=== PATIENT | female | born 1980 | race Caucasian/White ===

== ENCOUNTER 2023-06-05 15:20 | Observation (INO) | payer BC, MEDICAID, SELFPAY ==
[2023-06-05 15:24] VITALS: BP 101/52; PULSE 121; RESP 24; TEMP 36.2; O2SAT 93; BMI 34.2
--- NOTE | 2023-06-05 15:50 | CT_ITS ---
STUDY: CT BRAIN WITHOUT CONTRAST REASON FOR EXAM: Female, 42 years old. mental status change RADIATION DOSAGE (If Supplied By Facility): CTDIvol = ( 44.99 ) mGy, DLP = ( 829.85 ) mGycm TECHNIQUE: Transaxial CT imaging of the brain was performed without administration of intravenous contrast material. Individualized dose optimization techniques were used for this CT. COMPARISON: No relevant priors. FINDINGS: Normal soft tissue structures. Normal calvarium. Normal size ventricles and extra-axial spaces for the patient''s age. Normal white matter tracts of the cerebral hemispheres. Normal basal ganglia and thalami. Normal brainstem. Normal cerebellum. There is no intracranial hemorrhage. There are no findings of an acute ischemic infarction. Normal visualized paranasal sinuses. CT/Brain/Head without Contrast IMPRESSION: Normal unenhanced CT scan of the brain. Electronically Signed: Lauren Shi MD at 17:36 EDT Reading Location ID and State: [id number] / Tel , Service support ,
--- NOTE | 2023-06-05 15:52 | EDS_ITS ---
HPI History of Present Illness Chief Complaint: Seizure Narrative Narrative: 42-year-old female past medical history of bipolar disorder, presents via EMS. She admits to drinking alcohol today and taking a hit off of her sisters marijuana pipe. She presents because of mental status change that has resolved. Her states that they were at a pool green party. She had been drinking alcohol. She had spilled her vape substance all over her legs previously which is absorbed through the skin reportedly. She leaned over, but did not come back up. Her went over to her, and tried to awaken her, but she felt rigid and stiff. He states that she evacuated her bowels and when he went to pick her up, he was trying to awaken her for at least a minute or 2. When she awoke, she states I am fine, and there was no postictal period. She states that she felt as if she was going to pass out previously and that she felt lightheaded prior to these events happening. They called EMS and she was brought here for evaluation. PFSH PFSH Medical History Anxiety and depression Bipolar 1 disorder Cannabis use disorder Diabetes mellitus, type 2 HTN (hypertension) Hyperlipidemia Obesity Restless leg syndrome Tardive dyskinesia Vaping nicotine dependence, tobacco product Home Medications atorvastatin 40 mg tablet mg 06/05/23 [History Last Taken Unknown] cariprazine 1.5 mg capsule (Vraylar) 1.5 mg PO DAILY 06/05/23 [History Last Taken Unknown] lisinopril 5 mg tablet mg 06/05/23 [History Last Taken Unknown] lorazepam 0.5 mg tablet mg 06/05/23 [History Last Taken Unknown] metformin 1,000 mg tablet mg 06/05/23 [History Last Taken Unknown] ropinirole 1 mg tablet mg 06/05/23 [History Last Taken Unknown] venlafaxine 75 mg capsule,extended release 24 hr mg PO 06/05/23 [History Last Taken Unknown] Allergy/AdvReac Type Severity Reaction Status Date / Time No Known Allergies Allergy Verified 06/05/23 15:26 Surgical History (Updated 06/05/23 @ 19:[address] Patricia Trinidad MD) H/O lumbar discectomy History of Social History (Updated 06/05/23 @ 19:[address] Patricia Trinidad MD) household members: spouse Smoking Status: Current every day smoker tobacco type: e-cigarettes alcohol intake: current substance use type: marijuana ROS ROS ED ROS Narrative Constitutional: No fever, no chills. HEENT: No sore throat. No neck pain. No loss of vision. No rhinorrhea. Cardiovascular: No chest pain. No palpitations. No pedal edema. Questionable syncopal episode. Respiratory: No cough, no shortness of breath. Abdominal: No abdominal pain. No nausea. No vomiting. Genitourinary: No dysuria. No hematuria. Musculoskeletal: No myalgias. No arthralgias. Neurologic: No headaches. No dizziness. Positive lightheadedness. Positive mental status change-resolved Skin: No rash. No change in color. Psychiatric: No depression. No anxiety. EXAM Physical Exam Narrative Exam Narrative: Afebrile. Vital signs noted. HEENT: Normocephalic. Atraumatic. PERRL, EOMI. Neck soft and supple. No point tenderness or step off. Cardiovascular: Positive tachycardia, no murmurs, rubs, or gallops appreciated. Respiratory: No tachypnea. Lungs clear to auscultation bilaterally. Gastrointestinal: Abdomen soft, nontender, with normoactive bowel sounds. No rebound or guarding. Neurological: Awake. Alert. Oriented to person, place, and time. Nonfocal, nonlateralizing. Skin: No rash. Normal color. No pallor. Musculoskeletal: No pedal edema. Full range of motion extremities. Const Vital Signs: 06/05/23 15:24 06/05/23 18:49 06/05/23 19:15 Temperature 97.1 F L 98.0 F Temperature Source Temporal Oral Pulse Rate 121 H 104 H 99 Respiratory Rate 24 H 20 H 16 Blood Pressure 101/52 L 156/118 H 121/81 H Blood Pressure Mean 68 130 94 Pulse Ox 93 94 94 Oxygen Delivery Method Room Air Room Air Room Air MDM MDM MDM Narrative Medical decision making narrative: Suspicion is lower for seizure, although she lost control of her bowels, it may have been more of a syncopal episode. Additionally I do feel that there may be a confluence of circumstances including any alcohol intoxication accompanied by marijuana use, as the patient states that she does not regularly smoke marijuana. Comprehensive work-up was pursued. She will be bolused normal sa line 1 L intravenously. I reviewed her laboratory work, she has normal white count of 6.8, hemoglobin 13.7, hematocrit 40.8, platelet count normal at 178. Sodium is 139 and potassium slightly low at 3.3 which I think is nonspecific. She has a normal anion gap 15, glucose is elevated at 194, consistent with her diabetes, but she has a normal anion gap of 15 as just stated. I do not have large concern for diabetic ketoacidosis. LFTs are normal at 25 and 43. High-sensitivity troponin is less than 3. EKG was obtained and interpreted by myself independently as sinus tachycardia at 118 bpm. Her alcohol level is elevated at 137 consistent with acute intoxication. Urine for drugs of abuse is positive for cannabinoids. They stated that she had spilled her vaping juice on her, and may have had skin absorption, but this was more of a nicotine substance and other vaping chemicals. Her lactic acid is elevated at 4.9. Although she is tachycardic I have lower concern for sepsis. Initially had ordered antibiotics and blood cultures, but feel that the lactic acid may be elevated secondary to her actually having a seizure. I did add a prolactin which is normal at 15. However, this was later after her lactic acid was positive. With concern for new onset seizure with her reported loss of bowels and body stiffness, I consulted neurology. After evaluation, the teleneurologist is re commending observation for MRI, EEG, and other stroke work-up. They state that she does not need to be started on antiseizure medication for 1 suspected seizure. At this point in time, I will discuss patient with the hospitalist for observation. Patient was discussed with Dr. Patricia Trinidad. After a bolus of IV fluids she is less tachycardic at 104 bpm. Disposition is assigned to observation. Patient is in stable condition. Lab Data Labs: Laboratory Results - last 24 hr 06/05/23 06/05/23 16:00 16:20 WBC 6.8 RBC 4.75 Hgb 13.7 Hct 40.8 MCV 85.9 MCH 28.8 MCHC 33.6 RDW Std Deviation 41.6 RDW Coeff of Arti 13.3 Plt Count 178 MPV 12.9 H Immature Gran % (Auto) 0.400 Neut % (Auto) 60.8 Lymph % (Auto) 31.5 [place] % (Auto) 6.6 Eos % (Auto) 0.3 Baso % (Auto) 0.4 Absolute Neuts (auto) 4.2 Absolute Lymphs (auto) 2.15 Nucleated RBC % 0 Sodium 139 Potassium 3.3 L Chloride 105 Carbon Dioxide 19.0 L Anion Gap 15 BUN 13 Creatinine 0.83 Estim Creat Clear Calc 79.45 Est GFR (MDRD) Af Amer 97 Est GFR (MDRD) Non-Af 80 BUN/Creatinine Ratio 15.6 Glucose 194 H Lactic Acid 4.9 H* Calcium 8.7 Total Bilirubin 0.30 AST 25 ALT 43 Alkaline Phosphatase 79 Troponin I High Sens < 3 L Total Protein 6.8 Albumin 3.4 Globulin 3.4 Albumin/Globulin Ratio 1.0 Prolactin 15.5 Serum , Qual NEGATIVE Urine Opiates Screen NEGATIVE Urine Methadone Screen NEGATIVE Ur Barbiturates Screen NEGATIVE Ur Phencyclidine Scrn NEGATIVE Ur Amphetamines Screen NEGATIVE MDMA (Ecstasy) Screen NEGATIVE U Benzodiazepines Scrn NEGATIVE Urine Cocaine Screen NEGATIVE U Cannabinoids Screen POSITIVE H Ur Drug Screen Comment Ethyl Alcohol 137.0 Radiography Diagnostic Testing: Clinical Impression(s) from Imaging Studies Brain CT 06/05/23 15:50 IMPRESSION: Normal unenhanced CT scan of the brain. Electronically Signed: Lauren Shi MD at 17:36 EDT Reading Location ID and State: [id number] / Tel , Service support , Discharge Plan Dx/Rx/DC Orders Clinical Impression: Alcohol intoxication, Cannabis use disorder, mild, abuse, New onset seizure Disposition Disposition: Acute Care Hospital [facility]
[2023-06-05 16:24] LABS: Absolute Lymphocyte Count 2.15 X10^3/uL (0.83-4.51); Absolute Neutrophil Count 4.2 X10^3/uL (2.0-7.7); Basophil# 0.03 X10^3/uL; Basophil% 0.4 % (0-1); Eosinophil# 0.02 X10^3/uL; Eosinophils% 0.3 % (0-5); Hematocrit 40.8 % (37-47); Hemoglobin 13.7 g/dL (12.0-15.0); Lymphocyte # 2.15 X10^3/ul (0.83-4.51); Lymphocyte % 31.5 % (19-41); Mean Corp Hgb Conc 33.6 g/dL (32-36); Mean Corpuscular Hgb 28.8 pg (27.0-32.0); Mean Corpuscular Volume 85.9 fL (81-99); Mean Platelet Vol. 12.9 fl (6.2-12.0); Monocyte# 0.45 X10^3/uL; Monocyte% 6.6 % (0-10); NRBC Flagged by Analyzer 0 % (0-5); Neutrophil # 4.15 X10^3/uL (2.7-7.7); Neutrophil % 60.8 % (47-70); Platelet Count 178 K/mm3 (150-450); RBC Distribution Width CV 13.3 % (11.6-14.6); RBC Distribution Width SD 41.6 fl (35.1-43.9); Red Blood Count 4.75 M/mm3 (4.2-5.4); White Blood Count 6.8 K/mm3 (4.4-11.0)
[2023-06-05 16:36] LABS: Internal QC Validated? YES +Cl - CLEAR BKGD; Pregnancy, Serum, hCG Quali. NEGATIVE Negative
[2023-06-05 16:45] LABS: AST(SGOT) 25 U/L (15-37); Alanine Aminotransfer ALT/SGPT 43 U/L (13-56); Albumin, Serum 3.4 g/dL (3.2-5.0); Alkaline Phosphatase 79 U/L (45-117); Anion Gap 15 (5-15); BUN 13 mg/dL (7-18); BUN/Creat Ratio 15.6 RATIO (10-20); Calcium,Total 8.7 mg/dL (8.5-10.1); Chloride 105 mmol/L (98-107); Creatinine, Serum 0.83 mg/dL (0.55-1.02); EST Glomerular Filtration Rate 80 mL/min (>60); Est Glom Filt Rate - Afr Amer 97 mL/min (>60); Estimated Creatinine Clearance 79.45 ml/min; Globulin 3.4 g/dL (2.2-4.2); Glucose 194 mg/dL (74-106); Potassium 3.3 mmol/L (3.5-5.1); Protein, Total 6.8 g/dL (6.4-8.2); Sodium Level 139 mmol/L (136-145); Troponin-I HS < 3 pg/mL (3.0-54.0)
[2023-06-05 16:52] LABS: Lactic Acid 4.9 mmol/L (0.4-1.9)
[2023-06-05 17:05] LABS: Vista UDS pH Range 5
[2023-06-05 17:10] LABS: Amphetamine Urine VISTA NEGATIVE (<1000 ng/mL); Barbiturate Urine VISTA NEGATIVE (< 200 ng/mL); Benzodiazepine Urine VISTA NEGATIVE (< 200 ng/mL); Cocaine Urine VISTA NEGATIVE (< 300 ng/mL); Ecstacy Urine VISTA NEGATIVE (< 500 ng/mL); Methadone Urine VISTA NEGATIVE (< 300 ng/mL); PCP Urine VISTA NEGATIVE (< 25 ng/mL); THC Urine VISTA POSITIVE (< 50 ng/mL)
[2023-06-05 17:36] LABS: Prolactin 15.5 ng/mL
[2023-06-05 18:49] VITALS: BP 156/118; PULSE 104; RESP 20; TEMP 36.7; O2SAT 94
[2023-06-05 19:11] VITALS: BP 118/80; PULSE 88; RESP 16; TEMP 36.6; O2SAT 95
[2023-06-05 19:15] VITALS: BP 121/81; PULSE 99; RESP 16; O2SAT 94
--- NOTE | 2023-06-05 19:18 | HP.PCM.HOS_ITS ---
HPI - General General Date of Admission: 06/05/23 Date of Service: 06/05/23 Chief Complaint: Possible seizure, new onset. HPI Narrative The patient is a 42 y/o F w/ PMHx: Obesity, Anxiety and Depression/Bipolar disorder with associated tardive dyskinesia, Hypertension, Hyperlipidemia, Diabetes mellitus type II, RLS, Cannbis Use, Tobacco use who presents to the [facility] ED on 06/05/23 with history of apparently being her baseline normal on day of presentation with reported alcohol intake and apparently taking a hit off her sister's marijuana pipe with onset of significant mental status change reportedly at a alliance party specifically a pool alliance party and apparently also spilled all of her vape substance all over her legs with concern for skin absorption and when this occurred she slumped over and when her went over to her and tried to awaken her she felt rigid and stiff with loss of bowels eventually waking up approximately 2 minutes since onset and initially stated to ED physicians that she was returned to her complete baseline however to the telemetry neurology she noted that she was potentially confused for about 5 minutes following and then returned to her baseline had complete return to her baseline with report that prior to this event she felt lightheaded and dizzy as if she was going to pass out with EMS call and eventual ED evaluation. Per spouse patient also did not convulse but became only rigid. Work-up in the ED in cluded T97.1, heart rate 121, BP 101/52, respiratory rate 24, 93% oxygenation with most recent vitals T98, heart rate 104, BP 156/119, respiratory rate 20, 94% oxygenation, CBC with WC 6.8, hemoglobin 13.7, platelet 178 without marked shift, CMP with potassium 3.3, carbon oxide 19, glucose 194, lactic acid 4.9, hepatic profile unremarkable, prolactin 15.5, troponin less than 3, serum negative, UDS with positive cannabis, ethyl alcohol 137, CT the brain with no acute intracranial finding, EKG ST with no acute evidence of ischemia. Telemetry neurology consultation with recommendation for MRI of the brain with and without contrast, EEG, no pursued restrictions unless she has a recurrent seizure and strong recommendation to avoid vaping marijuana as well as nicotine cessation. Initially in the ED upon presentation there was concern she may have sepsis for sepsis protocol was initially started with IV vancomycin and Zosyn. COUNT INCLUDES THE [facility] Medical History Anxiety and depression Bipolar 1 disorder Cannabis use disorder Diabetes mellitus, type 2 HTN (hypertension) Hyperlipidemia Obesity Restless leg syndrome Tardive dyskinesia Vaping nicotine dependence, tobacco product Home Medications atorvastatin 40 mg tablet 40 mg PO QHS high cholesterol 06/05/23 [History Last Taken 06/04/23] cariprazine 1.5 mg capsule (Vraylar) 1.5 mg PO DAILY 06/05/23 [History Last Taken Unknown] lisinopril 5 mg tablet 5 mg PO DAILY 06/05/23 [History Last Taken Unknown] lorazepam 0.5 mg tablet 0.5 mg PO DAILY 06/05/23 [History Last Taken 06/05/23] metformin 1,000 mg tablet 1,000 mg PO BID diabetes 06/05/23 [History Last Taken 06/05/23] ropinirole 1 mg tablet mg not taking any more 06/05/23 [History Last Taken Un known] valbenazine 40 mg capsule (Ingrezza) 40 mg PO QHS for jaw 06/05/23 [History Last Taken 06/04/23] venlafaxine 75 mg capsule,extended release 24 hr 75 mg PO DAILY anxiety 06/05/23 [History Last Taken 06/05/23] Allergy/AdvReac Type Severity Reaction Status Date / Time No Known Allergies Allergy Verified 06/05/23 15:26 Family History (Updated 06/05/23 @ 19:[address] Patricia Trinidad MD) Father HLD (hyperlipidemia) Mother HLD (hyperlipidemia) Hypertension Heart disease COPD (chronic obstructive pulmonary disease) CHF (congestive heart failure) Diabetes Surgical History (Updated 06/05/23 @ 19:[address] Patricia Trinidad MD) H/O lumbar discectomy History of Social History (Updated 06/05/23 @ 19:[address] Patricia Trinidad MD) household members: spouse Smoking Status: Current every day smoker tobacco type: cigarettes and e- cigarettes Electronic Cigarette Use: with nicotine alcohol intake: current alcohol intake frequency: a few times a month substance use type: other details: Denies routine use of cannabis products. ROS ROS Narrative Admission Review of Systems: CONSTITUTIONAL: No weight loss, fever, chills, + weakness or fatigue. HEENT: Eyes: No visual loss, blurred vision, double vision or yellow sclerae. Ears, Nose, Throat: No hearing loss, sneezing, congestion, runny nose or sore throat. SKIN: No rash or itching, lesions, wounds. CARDIOVASCULAR: No chest pain, chest pressure or chest discomfort, palpitations, edema, orthopnea, syncopal events. RESPIRATORY: No shortness of breath, cough or sputum, wheezing, hemoptysis. GASTROINTESTINAL: + Incontinent of stool, No anorexia, nausea, vomiting or diarrhea, abdominal pain, melena, BRBPR. GENITOURINARY: No dysuria, frequency, urgency or retention. NEUROLOGICAL: + Unresponsive episode with body rigidity, incontient of stool, ? Seizure. No headache, dizziness, syncope, paralysis, ataxia, numbness or tingling in the extremities, focal weakness. MUSCULOSKELETAL: No muscle, back pain, joint pain or stiffness. HEMATOLOGIC: No anemia, bleeding or bruising. LYMPHATICS: No enlarged nodes. No history of splenectomy. PSYCHIATRIC: + history of depression or anxiety. ENDOCRINOLOGIC: No reports of sweating, cold or heat intolerance. No polyuria or polydipsia. ALLERGIES: No history of asthma, hives, eczema or rhinitis. Vital Signs Vital Signs Vital Signs: 06/05/23 15:24 06/05/23 18:49 06/05/23 19:15 Temperature 97.1 F L 98.0 F Temperature Source Temporal Oral Pulse Rate 121 H 104 H 99 Respiratory Rate 24 H 20 H 16 Blood Pressure 101/52 L 156/118 H 121/81 H Blood Pressure Mean 68 130 94 Pulse Ox 93 94 94 Oxygen Delivery Method Room Air Room Air Room Air Weight Weight: 205 lb 11.06 oz Body Mass Index (BMI) 34.2 Physical Exam Narrative Physical Examination: General: Awake, alert, oriented x 3 and cooperative, seated upright in the ED bed in no apparent distress, fatigued appearing. Skin: Flushed color, normal turgor, no icterus, no cyanosis. HEENT: AT/NC, EOMI, PERRLA, mildly dry MM, no carotid bruits or JVD noted. Lungs: CTA bilaterally, moderate effort, mild decrease BL bases, no rales, ronchi or wheezing. Heart: Mildly tachycardic with regular rhythm; no gallop, rub audible. Abdomen: Soft, NTTP, ND, mildly hyperactive BS, no HSM. Extremities: No cyanosis, clubbing, or edema. Neurological: Patient awake, alert, oriented as noted, cognitive function intact; pupils equally reactive to light and accommodation, cranial nerves II- XII grossly normal, moving all 4 extremities, no focal deficits, strength mildly to moderately globally decreased but improving, she notes feeling improved with IVFs. Psychiatric: Affect appears fatigued otherwise normal, no acute evidence of depressive or anxiety feelings but does have underlying history. Results Lab / Micro Data 06/05/23 16:00 06/05/23 16:00 Labs: Laboratory Results - last 24 hr 06/05/23 16:00: WBC 6.8, RBC 4.75, Hgb 13.7, Hct 40.8, MCV 85.9, MCH 28.8, MCHC 33.6, RDW Std Deviation 41.6, RDW Coeff of Arti 13.3, Plt Count 178, MPV 12.9 H, Immature Gran % (Auto) 0.400, Neut % (Auto) 60.8, Lymph % (Auto) 31.5, [place] % (Auto) 6.6, Eos % (Auto) 0.3, Baso % (Auto) 0.4, Absolute Neuts (auto) 4.2, Abs olute Lymphs (auto) 2.15, Nucleated RBC % 0, Sodium 139, Potassium 3.3 L, Chl oride 105, Carbon Dioxide 19.0 L, Anion Gap 15, BUN 13, Creatinine 0.83, Estim Creat Clear Calc 79.45, Est GFR (MDRD) Af Amer 97, Est GFR (MDRD) Non-Af 80, BUN/Creatinine Ratio 15.6, Glucose 194 H, Lactic Acid 4.9 H*, Calcium 8.7, Total Bilirubin 0.30, AST 25, ALT 43, Alkaline Phosphatase 79, Troponin I High Sens < 3 L, Total Protein 6.8, Albumin 3.4, Globulin 3.4, Albumin/Globulin Ratio 1.0, Prolactin 15.5, Serum , Qual NEGATIVE, Ethyl Alcohol 137.0 06/05/23 16:20: Urine Opiates Screen NEGATIVE, Urine Methadone Screen NEGATIVE, Ur Barbiturates Screen NEGATIVE, Ur Phencyclidine Scrn NEGATIVE, Ur Amphetamines Screen NEGATIVE, MDMA (Ecstasy) Screen NEGATIVE, U Benzodiazepines Scrn NEGATIVE, Urine Cocaine Screen NEGATIVE, U Cannabinoids Screen POSITIVE H, Ur Drug Screen Comment Radiology Impression Brain CT 06/05/23 15:50 IMPRESSION: Normal unenhanced CT scan of the brain. Electronically Signed: Lauren Shi MD at 17:36 EDT Reading Location ID and State: [id number] / Tel , Service support , Assessment & Plan Assessment/Plan (1) New onset seizure: PLAN: Plan The patient is a 42 y/o F w/ PMHx: Obesity, Anxiety and Depression/Bipolar disorder with associated tardive dyskinesia, Hypertension, Hyperlipidemia, Di abetes mellitus type II who presents to the [facility] ED on 06/05/23 with history of apparently being her baseline normal on day of presentation with reported alcohol intake at a alliance party, unfortunally spilling also the entire contents of her vaping pen on her and taking hits of a cannbis vaping device with onset possible seizure. #1. New-onset seizure with concurrent strong exposure to vaping substance as well as cannabis potentially laced w/ lactic acidosis: Seizure witnessed with questionable postictal state as well as loss of bowels. CT head without acute intracranial pathology. Will admit to PCU, maintain on telemetry in PCU on seizure precautions, obtain EEG, obtain brain MRI with and without, obtain TSH, obtain magnesium. PRN ativan IV for seizure activity. Working with noted serum prolactin is significantly low and although this does not completely rule out a seizure it certainly lowers the likelihood of an epileptic seizure especially in the event of a seizure appearing to be a generalized tonic-clonic seizure; however, lactic acidosis being elevated however of more indicative of possible seizure. Will also obtain CPK level as well as LDH to further assess. Trend LA per facility protocol. Will continue to aggressively hydrate. #2. Hypokalemia: Admission K+ 3.4, magnesium level requested, supplementation given, repeat level in AM. #3. Diabetes mellitus type II: Hold oral regimen as well as Trulicity, ADA diet, accu checks w/ ISS. #4. Anxiety and depression/bipolar disorder: We will continue patient home venlafaxine as well as Ativan and cariprazine. #5. Hypertension: Continue home regimen including lisinopril, PRN hydralazine. #6. Hyperlipidemia: We will continue patient home atorvastatin. #7. Restless leg syndrome: We will continue patient on Requip regimen. #8. Obesity: Weight loss and lifestyle changes encouraged. #9. Tobacco Abuse: Encouraged e-cigarette cessation, inpatient consultation per RT, defer NR given recent high exposure. #10. DVT prophylaxis: Low risk for observation admission. #11. CODE STATUS: Full code. Charges/Coding Visit Charges Inpatient E&M: 92904 Init Hosp L3
[2023-06-05] MEDS: 0.9% Normal Saline 1,000 ML 999 ML IV ×2 (19:19→21:38)
[2023-06-05 19:40] VITALS: BMI 33.9
[2023-06-05 19:45] VITALS: BP 139/85; PULSE 90; RESP 18; TEMP 36.7; O2SAT 98
[2023-06-05 20:08] LABS: Reflex Lactate? Y
[2023-06-05 20:39] LABS: CPK Total, Creatine Kinase 118 U/L (26-192); LDH 173 U/L (84-246); Magnesium 1.9 mg/dL (1.6-2.6)
[2023-06-05 21:15] LABS: Lactic Acid 1.3 mmol/L (0.4-1.9)
[2023-06-05] MEDS: Potassium Chloride Oral Tablet 20 MEQ 40 MEQ PO (21:38)
[2023-06-05] MEDS: Atorvastatin Calcium 40 MG Tablet PO (21:42)
[2023-06-05 21:50] VITALS: BP 131/78; PULSE 97; RESP 18; TEMP 36.8; O2SAT 99
[2023-06-05 22:27] LABS: Bedside Glucose 130 mg/dL (74-106)
[2023-06-05] MEDS: 0.9% Normal Saline 1,000 ML 125 ML IV (22:43)
[2023-06-06] MEDS: Acetaminophen 325 MG Tablet 650 MG PO (03:47)
[2023-06-06 03:48] VITALS: BP 113/81; PULSE 85; RESP 18; TEMP 36.7; O2SAT 98
[2023-06-06 05:07] LABS: Absolute Lymphocyte Count 1.96 X10^3/uL (0.83-4.51); Absolute Neutrophil Count 4.6 X10^3/uL (2.0-7.7); Basophil# 0.03 X10^3/uL; Basophil% 0.4 % (0-1); Eosinophil# 0.02 X10^3/uL; Eosinophils% 0.3 % (0-5); Hematocrit 35.9 % (37-47); Hemoglobin 11.6 g/dL (12.0-15.0); Lymphocyte # 1.96 X10^3/ul (0.83-4.51); Lymphocyte % 26.9 % (19-41); Mean Corp Hgb Conc 32.3 g/dL (32-36); Mean Corpuscular Hgb 28.4 pg (27.0-32.0); Mean Corpuscular Volume 87.8 fL (81-99); Mean Platelet Vol. 12.7 fl (6.2-12.0); Monocyte# 0.63 X10^3/uL; Monocyte% 8.7 % (0-10); NRBC Flagged by Analyzer 0 % (0-5); Neutrophil # 4.61 X10^3/uL (2.7-7.7); Neutrophil % 63.3 % (47-70); Platelet Count 168 K/mm3 (150-450); RBC Distribution Width CV 13.4 % (11.6-14.6); RBC Distribution Width SD 43.1 fl (35.1-43.9); Red Blood Count 4.09 M/mm3 (4.2-5.4); White Blood Count 7.3 K/mm3 (4.4-11.0)
[2023-06-06 05:45] LABS: AST(SGOT) 15 U/L (15-37); Alanine Aminotransfer ALT/SGPT 32 U/L (13-56); Albumin, Serum 2.8 g/dL (3.2-5.0); Alkaline Phosphatase 67 U/L (45-117); Anion Gap 4 (5-15); BUN 13 mg/dL (7-18); BUN/Creat Ratio 18.8 RATIO (10-20); Chloride 113 mmol/L (98-107); Creatinine, Serum 0.69 mg/dL (0.55-1.02); EST Glomerular Filtration Rate 99 mL/min (>60); Est Glom Filt Rate - Afr Amer 120 mL/min (>60); Estimated Creatinine Clearance 95.57 ml/min; Globulin 2.8 g/dL (2.2-4.2); Glucose 130 mg/dL (74-106); Potassium 4.6 mmol/L (3.5-5.1); Protein, Total 5.6 g/dL (6.4-8.2); Sodium Level 141 mmol/L (136-145); Thyroid Stim Hormone (TSH) 4.84 uIU/mL (0.358-3.74)
--- NOTE | 2023-06-06 05:55 | MRI_ITS ---
STUDY: MRI BRAIN WITH AND WITHOUT CONTRAST REASON FOR EXAM: Female, 42 years old. Seizure TECHNIQUE: Standardized multiplanar fat and water weighted pulse sequences were obtained. IV 18ML CLARISCAN was administered for the contrast portion of the examination. COMPARISON: CT of the brain June 05, 2023 FINDINGS: Normal size of the ventricles and extra-axial spaces for the patient''s age. Normal white matter tracts of the supratentorial brain. Normal bilateral basal ganglia. Normal thalami. There is no extra-axial fluid accumulation. Normal flow voids within the major intracranial circulation suggesting patency by spin echo criteria. Normal venous enhancement. There is no enhancing intra-axial or extra-axial abnormality. Normal sella turcica, pituitary gland, infundibular stalk, optic chiasm and hypothalamus. Normal tectal plate and pineal gland. Normal midbrain, laura and medulla. Normal cerebellum. Normal basal cisterns. Normal bilateral temporal bones. Normal bilateral internal auditory canals. No demonstrated orbital abnormality, within the constraints of a routine brain study. Small polyp or mucous retention cyst in left maxillary sinus.. Normal calvarium and skull base. Normal visualized soft tissue structures. Normal visualized upper cervical spine. MRI/Brain W/WO Contrast IMPRESSION: Normal unenhanced and enhanced MRI of the brain. Left maxillary sinusitis likely chronic Electronically Signed: Jamal Michael MD at 17:42 EDT ,
[2023-06-06] MEDS: 0.9% Normal Saline 1,000 ML 125 ML IV ×3 (06:10→23:37)
[2023-06-06 07:06] LABS: Bedside Glucose 129 mg/dL (74-106)
[2023-06-06] MEDS: Venlafaxine XR 75 MG Capsule PO (08:33)
[2023-06-06] MEDS: LORazepam 0.5 MG Tablet PO (08:33)
[2023-06-06] MEDS: Lisinopril 5 MG Tablet PO (08:33)
[2023-06-06 10:52] VITALS: BP 127/77; PULSE 86; RESP 16; TEMP 36.6
--- NOTE | 2023-06-06 14:30 | PN.HOSP_ITS ---
Reason for Visit Reason for Visit: Diagnoses Unspecified convulsions (06/05/23) Subjective Subjective Feeling fairly well today, has not had recurrence of symptoms Objective Data Objective Data Vital Signs: Vital Signs Temp Pulse Resp BP Pulse Ox O2 Del Method 97.9 F 86 16 127/77 H 98 Room Air 06/06/23 10:52 06/06/23 10:52 06/06/23 10:52 06/06/23 10:52 06/06/23 03:48 06/06/23 14:00 Oxygen Delivery Method Room Air Weight: 92.4 kg Body Mass Index (BMI) 33.9 Intake & Output: Intake and Output for Last 24 Hours 06/04/23 06/05/23 06/06/23 23:59 23:59 23:59 Intake Total 1000 / 1400 5227.92 / 5227.92 Balance 1000 / 1400 5227.92 / 5227.92 Lab / Micro Data 06/06/23 04:25 06/06/23 04:25 Labs: Laboratory Results - last 24 hr 06/05/23 16:00: WBC 6.8, RBC 4.75, Hgb 13.7, Hct 40.8, MCV 85.9, MCH 28.8, MCHC 33.6, RDW Std Deviation 41.6, RDW Coeff of Arti 13.3, Plt Count 178, MPV 12.9 H, Immature Gran % (Auto) 0.400, Neut % (Auto) 60.8, Lymph % (Auto) 31.5, [place] % (Auto) 6.6, Eos % (Auto) 0.3, Baso % (Auto) 0.4, Absolute Neuts (auto) 4.2, Absolute Lymphs (auto) 2.15, Nucleated RBC % 0, Sodium 139, Potassium 3.3 L, Chloride 105, Carbon Dioxide 19.0 L, Anion Gap 15, BUN 13, Creatinine 0.83, Estim Creat Clear Calc 79.45, Est GFR (MDRD) Af Amer 97, Est GFR (MDRD) Non-Af 80, BUN/Creatinine Ratio 15.6, Glucose 194 H, Lactic Acid 4.9 H*, Calcium 8.7, Magnesium 1.9, Total Bilirubin 0.30, AST 25, ALT 43, Alkaline Phosphatase 79, Lactate Dehydrogenase 173, Total Creatine Kinase 118, Troponin I High Sens < 3 L , Total Protein 6.8, Albumin 3.4, Globulin 3.4, Albumin/Globulin Ratio 1.0, Prolactin 15.5, Serum , Qual NEGATIVE, Ethyl Alcohol 137.0 06/05/23 16:20: Urine Opiates Screen NEGATIVE, Urine Methadone Screen NEGATIVE, Ur Barbiturates Screen NEGATIVE, Ur Phencyclidine Scrn NEGATIVE, Ur Amphetamines Screen NEGATIVE, MDMA (Ecstasy) Screen NEGATIVE, U Benzodiazepines Scrn NEGATIVE, Urine Cocaine Screen NEGATIVE, U Cannabinoids Screen POSITIVE H, Ur Drug Screen Comment 06/05/23 20:40: Lactic Acid 1.3 06/05/23 21:41: POC Glucose 130 H 06/06/23 04:25: WBC 7.3, RBC 4.09 L, Hgb 11.6 L, Hct 35.9 L, MCV 87.8, MCH 28.4, MCHC 32.3, RDW Std Deviation 43.1, RDW Coeff of Arti 13.4, Plt Count 168, MPV 1 2.7 H, Immature Gran % (Auto) 0.400, Neut % (Auto) 63.3, Lymph % (Auto) 26.9, [place] % (Auto) 8.7, Eos % (Auto) 0.3, Baso % (Auto) 0.4, Absolute Neuts (auto) 4.6, Absolute Lymphs (auto) 1.96, Nucleated RBC % 0, Sodium 141, Potassium 4.6, Chloride 113 H, Carbon Dioxide 24.0, Anion Gap 4 L, BUN 13, Creatinine 0.69, Estim Creat Clear Calc 95.57, Est GFR (MDRD) Af Amer 120, Est GFR (MDRD) Non-Af 99, BUN/Creatinine Ratio 18.8, Glucose 130 H, Calcium 8.0 L, Total Bilirubin 0.30, AST 15, ALT 32, Alkaline Phosphatase 67, Total Protein 5.6 L, Albumin 2.8 L, Globulin 2.8, Albumin/Globulin Ratio 1.0, TSH 4.84 H 06/06/23 06:11: POC Glucose 129 H Radiography Diagnostic Testing: Radiology Impression Brain CT 06/05/23 15:50 IMPRESSION: Normal unenhanced CT scan of the brain. Electronically Signed: Lauren Shi MD at 17:36 EDT Reading Location ID and State: [id number] / Tel , Service support , Physical Exam Narrative General: Alert, oriented, no apparent distress HEENT: Atraumatic, normocephalic Eyes: Anicteric, normal conjunctiva, extraocular movements grossly intact Neck: Supple Respiratory: Clear to auscultation bilaterally, normal respiratory effort Cardiovascular: Regular rate and rhythm GI: Soft, nontender, nondistended Extremities: No edema Musculoskeletal: Moving all extremities Neuro: No overt focal neurological deficits Skin: No rashes appreciated Psych: Cooperative Assessment & Plan Assessment/Plan (1) New onset seizure: PLAN: Plan #Episode of LOC-possibly secondary to new onset seizure disorder -after substance use, possibly confused for several minutes and did have fecal incontinence and tongue biting -Evaluated by neurology and they feel this may have been a seizure -They do not recommend starting anticonvulsant now but would start Keppra 750 mg twice daily if she has another seizure -EEG and MRI with and without contrast ordered, further dispo pending results #Lactic acidosis, likely secondary to #1 -Improved #Alcohol use and cannabis use -Suspect this contributed to #1 -Strongly advise cessation and given alcohol use and cannabis use would recommend against long-term lorazepam use at home #Bipolar 1 disorder per history -Is on cariprazine and venlafaxine #Type 2 diabetes mellitus -Glucose checks and sliding scale insulin -Hold oral regimen #Restless leg syndrome?continue Requip #Tobacco Abuse: Encouraged e-cigarette cessation, inpatient consultation per RT, defer NR given recent high exposure #DVT ppx: Low risk Ivana Green MD Time spent in the patient's overall evaluation,decision-making process, review of diagnostic data, adjustment of management, discussion with other providers, nursing nursing and ancillary staff involved in patient's care documentation, 36 minutes Charges/Coding Visit Charges Inpatient E&M: 91415 Subs Hosp L2
[2023-06-06 17:01] LABS: Bedside Glucose 128 mg/dL (74-106)
[2023-06-06 21:05] VITALS: BP 120/86; PULSE 79; RESP 18; TEMP 36.2; O2SAT 98
[2023-06-06] MEDS: MELATONIN 3 MG TABLET PO (21:07)
[2023-06-06] MEDS: Atorvastatin Calcium 40 MG Tablet PO (21:07)
[2023-06-06 22:00] LABS: Bedside Glucose 122 mg/dL (74-106)
[2023-06-06 22:39] LABS: Bedside Glucose 102 mg/dL (74-106)
[2023-06-07 03:15] VITALS: BP 105/77; PULSE 79; RESP 14; TEMP 37; O2SAT 98
[2023-06-07] MEDS: 0.9% Normal Saline 1,000 ML 125 ML IV (06:26)
[2023-06-07 06:33] LABS: Absolute Lymphocyte Count 1.76 X10^3/uL (0.83-4.51); Absolute Neutrophil Count 3.1 X10^3/uL (2.0-7.7); Basophil# 0.02 X10^3/uL; Basophil% 0.4 % (0-1); Eosinophil# 0.03 X10^3/uL; Eosinophils% 0.6 % (0-5); Hemoglobin 12.2 g/dL (12.0-15.0); Lymphocyte # 1.76 X10^3/ul (0.83-4.51); Lymphocyte % 32.4 % (19-41); Mean Corp Hgb Conc 32.1 g/dL (32-36); Mean Corpuscular Volume 87.4 fL (81-99); Mean Platelet Vol. 12.8 fl (6.2-12.0); Monocyte# 0.47 X10^3/uL; Monocyte% 8.6 % (0-10); NRBC Flagged by Analyzer 0 % (0-5); Neutrophil # 3.14 X10^3/uL (2.7-7.7); Neutrophil % 57.6 % (47-70); Platelet Count 158 K/mm3 (150-450); RBC Distribution Width CV 13.6 % (11.6-14.6); RBC Distribution Width SD 43.7 fl (35.1-43.9); Red Blood Count 4.35 M/mm3 (4.2-5.4); White Blood Count 5.4 K/mm3 (4.4-11.0)
[2023-06-07 06:50] LABS: Bedside Glucose 133 mg/dL (74-106)
[2023-06-07 07:15] LABS: Anion Gap 3 (5-15); BUN 10 mg/dL (7-18); BUN/Creat Ratio 14.3 RATIO (10-20); Calcium,Total 8.3 mg/dL (8.5-10.1); Chloride 112 mmol/L (98-107); EST Glomerular Filtration Rate 97 mL/min (>60); Est Glom Filt Rate - Afr Amer 118 mL/min (>60); Estimated Creatinine Clearance 94.21 ml/min; Glucose 138 mg/dL (74-106); Potassium 4.6 mmol/L (3.5-5.1); Sodium Level 140 mmol/L (136-145); T4 Free Direct 0.81 ng/dL (0.76-1.46)
[2023-06-07 09:09] VITALS: O2SAT 95
[2023-06-07] MEDS: LORazepam 0.5 MG Tablet PO (09:20)
[2023-06-07] MEDS: Lisinopril 5 MG Tablet PO (09:20)
[2023-06-07] MEDS: Venlafaxine XR 75 MG Capsule PO (09:20)
[2023-06-07 09:22] VITALS: BP 124/82; PULSE 74; RESP 18; TEMP 36.7; O2SAT 96; O2SAT 98
[2023-06-07 11:52] VITALS: BP 122/83; PULSE 81; RESP 18; TEMP 37.1; O2SAT 99
--- NOTE | 2023-06-07 11:52 | DS.PCM_ITS ---
Providers Date of Admission: 06/05/23 Date of Discharge: 06/07/23 Primary Care Physician: Dr. Fito Munroe DO Reason For Visit: POSSIBLE NEW ONSET SEIZURE Diagnosis Discharge Diagnosis (1) New onset seizure: Status: Acute Code(s): R56.9 - Unspecified convulsions Plan #Episode of LOC-presumed new onset seizure #Lactic acidosis resolved #Alcohol use and cannabis use #Bipolar 1 disorder per history #Type 2 diabetes mellitus #Restless leg syndrome #Tobacco Abuse Medications at Discharge Home Medications atorvastatin 40 mg tablet 40 mg PO QHS high cholesterol 06/05/23 cariprazine 1.5 mg capsule (Vraylar) 1.5 mg PO DAILY 06/05/23 lisinopril 5 mg tablet 5 mg PO DAILY 06/05/23 lorazepam 0.5 mg tablet 0.5 mg PO DAILY 06/05/23 metformin 1,000 mg tablet 1,000 mg PO BID diabetes 06/05/23 valbenazine 40 mg capsule (Ingrezza) 40 mg PO QHS for jaw 06/05/23 venlafaxine 75 mg capsule,extended release 24 hr 75 mg PO DAILY anxiety 06/05/23 Hospital Course Procedures - (eeg) Summary of Care Provided Minutes Spent on Discharge: 31 Hospital Course: The patient is a 42 y/o F w/ PMHx: Obesity, Anxiety and Depression/Bipolar disorder with associated tardive dyskinesia, Hypertension, Hyperlipidemia, D iabetes mellitus type II, RLS, Cannbis Use, Tobacco use who presented to [facility] ED 06/05/2023 and reportedly had been at a pool alliance party and had alcohol intake and use marijuana and then spilled her tobacco vape substance all over her legs and when that occurred she slumped over and when went over to try to awaken her she felt rigid and stiff and eventually lost bowels and was found to have bit her tongue. She was out for approximately 2 minutes and she was potentially confused for about 5 minutes following incident. Teleneurology evaluated prior to admission and recommended MRI and EEG and no seizure medication unless abnormalities found or repeat incident. Patient was back to baseline while in hospital and no further events, EEG with no seizure foci and MRI without any acute abnormalities. Patient discharged home in stable condition with no further complaints. Discharge instructions explained in person and written down for patient, DC instructions as follows: -Please follow-up with neurology upon discharge, please call Dr. Tirado's office upon discharge to schedule an establish care appointment for your new onset seizure (ph [phone]) -Given your seizure your prescribing physician may need to adjust your psychiatric medications, would advise you call to schedule a close follow-up on discharge and discuss these medications and any potential adjustments that may or may not need to be made SEIZURE DISCHARGE INSTRUCTIONS: - Seizures are unpredictable. Do not do anything that might cause danger to you or other people if you have another seizure. Do not drive, ride a bike, climb ladders, or operate dangerous equipment -Avoid unsupervised activities that may pose danger of sudden loss of consciousness including bathing, swimming alone, working at heights, and/or operating heavy machinery. - Do not take a bath alone. Take shower instead - Do not spend time alone until your healthcare provider says that you are no longer in danger of having another seizure - Tell your close friends and relatives about your seizure. Teach them what to do for you if it happens again - Take your medicine as prescribed, missing doses increases your risk of having repeat seizure -Follow regular sleep schedule such that you get at least 60 hours of restful sleep every night. This is especially important when you are sick or have a cold, flu, or another type of infection - Do not drink alcoholic beverages until your doctor says it is okay. Do not ever use recreational drugs - Do not drive until you are cleared to do so by your doctor -For future seizures if you are alone: If you feel a seizure coming on, lie down on a bed or the floor or with something soft under your head and lie on your left side, not in your back. Also make sure you are not near any objects that may injure you during seizure. Call 911 if you can. - For future seizures if someone is with you: Depression should help you get into a safe position and then they should call 911. They should not try to force anything into your mouth once the seizure begins. They should not put their fingers in your mouth. -After seizure you may be drowsy or confused. That person should stay with you until you are fully awake. That person should not offer you anything to eat or drink during that time. Call 911 or go to the emergency department. -Call your healthcare provider right away if you have any of these: Another seizure, a fever of 100.4 ?F or higher, abnormal irritability, drowsiness, or confusion, head or neck pain that gets worse -Please call your primary care provider's office upon discharge to schedule a hospital follow up within 1 week. -For any concerning signs or symptoms please call 911 or proceed to the nearest emergency department Physical Exam Narrative General: Alert, oriented, no apparent distress HEENT: Atraumatic, normocephalic Eyes: extraocular movements grossly intact Neck: Supple Respiratory: normal respiratory effort Cardiovascular: no edema appreciated GI: nondistended Extremities: Moving all extremities Neuro: No overt focal neurological deficits Psych: Cooperative Weight / BMI Weight Weight: 92.4 kg Body Mass Index (BMI) 33.9 ABG / Lab / Microbiology Data 06/07/23 05:36 06/07/23 05:36 Laboratory: Laboratory Results - last 24 hr 06/06/23 12:15: POC Glucose 128 H 06/06/23 16:07: POC Glucose 102 06/06/23 21:09: POC Glucose 122 H 06/07/23 05:36: WBC 5.4, RBC 4.35, Hgb 12.2, Hct 38.0, MCV 87.4, MCH 28.0, MCHC 32.1, RDW Std Deviation 43.7, RDW Coeff of Arti 13.6, Plt Count 158, MPV 12.8 H, Immature Gran % (Auto) 0.400, Neut % (Auto) 57.6, Lymph % (Auto) 32.4, [place] % (Auto) 8.6, Eos % (Auto) 0.6, Baso % (Auto) 0.4, Absolute Neuts (auto) 3.1, Absolute Lymphs (auto) 1.76, Nucleated RBC % 0, Sodium 140, Potassium 4.6, Chloride 112 H, Carbon Dioxide 25.0, Anion Gap 3 L, BUN 10, Creatinine 0.70, Estim Creat Clear Calc 94.21, Est GFR (MDRD) Af Amer 118, Est GFR (MDRD) Non-Af 97, BUN/Creatinine Ratio 14.3, Glucose 138 H, Calcium 8.3 L, Free T4 0.81 06/07/23 06:26: POC Glucose 133 H Radiography Diagnostic Testing: Radiology Impression Brain MRI 06/06/23 05:55 IMPRESSION: Normal unenhanced and enhanced MRI of the brain. Left maxillary sinusitis likely chronic Electronically Signed: Jamal Michael MD at 17:42 EDT Reading Location ID and State: [facility] / ID , Service support , D/C Instructions Discharge Diet: No restrictions Meaningful Use Info Meaningful Use Diagnoses (Choose all that apply): None applicable Discharge Plan Admission Admit Date/Time: 06/05/23 19:21 Primary Reason for Your Visit: Concern for new onset seizure Attending Provider: Ivana Green Primary Care Provider: Fito Munroe Consulting Providers: Patricia Trinidad Instructions Forms: Work / School Excuse Patient Instructions: ED Seizure New Onset Unknown ... Additional Instructions / Restrictions: DISCHARGE INSTRUCTIONS PLEASE READ *Please take this with you to your next doctors appointment* -Please follow-up with neurology upon discharge, please call Dr. Tirado's office upon discharge to schedule an establish care appointment for your new onset seizure ( [phone]) -Given your seizure your prescribing physician may need to adjust your psychiatric medications, would advise you call to schedule a close follow-up on discharge and discuss these medications and any potential adjustments that may or may not need to be made SEIZURE DISCHARGE INSTRUCTIONS: - Seizures are unpredictable. Do not do anything that might cause danger to you or other people if you have another seizure. Do not drive, ride a bike, climb ladders, or operate dangerous equipment -Avoid unsupervised activities that may pose danger of sudden loss of consci ousness including bathing, swimming alone, working at heights, and/or operating heavy machinery. - Do not take a bath alone. Take shower instead - Do not spend time alone until your healthcare provider says that you are no longer in danger of having another seizure - Tell your close friends and relatives about your seizure. Teach them what to do for you if it happens again - Take your medicine as prescribed, missing doses increases your risk of having repeat seizure -Follow regular sleep schedule such that you get at least 60 hours of restful sleep every night. This is especially important when you are sick or have a cold, flu, or another type of infection - Do not drink alcoholic beverages until your doctor says it is okay. Do not ever use recreational drugs - Do not drive until you are cleared to do so by your doctor -For future seizures if you are alone: If you feel a seizure coming on, lie down on a bed or the floor or with something soft under your head and lie on your left side, not in your back. Also make sure you are not near any objects that may injure you during seizure. Call 911 if you can. - For future seizures if someone is with you: Depression should help you get into a safe position and then they should call 911. They should not try to force anything into your mouth once the seizure begins. They should not put their fingers in your mouth. -After seizure you may be drowsy or confused. That person should stay with you until you are fully awake. That person should not offer you anything to eat or drink during that time. Call 911 or go to the emergency department. -Call your healthcare provider right away if you have any of these: Another seizure, a fever of 100.4 ?F or higher, abnormal irritability, drowsiness, or confusion, head or neck pain that gets worse -Please call your primary care provider's office upon discharge to schedule a hospital follow up within 1 week. -For any concerning signs or symptoms please call 911 or proceed to the nearest emergency department Discharge Orders/Prescriptions Prescriptions: Continued Vraylar 1.5 mg capsule 1.5 mg PO DAILY atorvastatin 40 mg tablet 40 mg PO QHS Patient Comments: TAKE 1 TABLET BY MOUTH EVERY DAY IN THE EVENING venlafaxine 75 mg capsule,extended release 24hr 75 mg PO DAILY Patient Comments: TAKE 1 CAPSULE BY MOUTH EVERY DAY lorazepam 0.5 mg tablet 0.5 mg PO DAILY Patient Comments: TAKE 1 TABLET BY MOUTH EVERYDAY in the am metformin 1,000 mg tablet 1,000 mg PO BID Patient Comments: TAKE 1 TABLET BY MOUTH TWICE A DAY lisinopril 5 mg tablet 5 mg PO DAILY Patient Comments: TAKE 1 TABLET BY MOUTH EVERY DAY Ingrezza 40 mg capsule 40 mg PO QHS Discontinued ropinirole 1 mg tablet Hold Instructions: switched to a different medication Patient Comments: TAKE 1 TABLET BY MOUTH ONCE DAILY Referrals / Follow Up: Fito Munroe DO [Primary Care Provider] - Within 1 Week Quentin Tirado MD [Non-Staff -Ordering Privileges] - See Referral Note ( -Please follow-up with neurology upon discharge, please call Dr. Tirado's office upon discharge to schedule an establish care appointment for your new onset seizure )) Disposition Disposition (needs filled in before D/C Order can be placed): Home, Self Care Charges/Coding Visit Charges Inpatient E&M: 75066 Disch Hosp >30min
--- NOTE | 2023-06-07 12:29 | PHA.DC.MR.R ---
Pharmacy [place] Med Reconciliation Pharmacy Service has performed discharge medication reconciliation for this patient. The patient's discharge medication list was reviewed for discrepancies and discrepancies were resolved. Medications at Discharge Home Medications atorvastatin 40 mg tablet 40 mg PO QHS high cholesterol 06/05/23 cariprazine 1.5 mg capsule (Vraylar) 1.5 mg PO DAILY 06/05/23 lisinopril 5 mg tablet 5 mg PO DAILY 06/05/23 lorazepam 0.5 mg tablet 0.5 mg PO DAILY 06/05/23 metformin 1,000 mg tablet 1,000 mg PO BID diabetes 06/05/23 valbenazine 40 mg capsule (Ingrezza) 40 mg PO QHS for jaw 06/05/23 venlafaxine 75 mg capsule,extended release 24 hr 75 mg PO DAILY anxiety 06/05/23
[2023-06-07 12:43] LABS: Bedside Glucose 121 mg/dL (74-106)
== END 2023-06-07 11:52 | disposition home or self-care (01) ==
LOC: ED 19:18 → PCU 20:46
PROVIDERS: Admitting Provider Family Medicine; Emergency Provider Emergency Medicine; PCP Student in an Organized Health Care Education/Training Program; Visit Provider Internal Medicine
DX: R56.9 Unspecified convulsions (principal); F10.129 Alcohol abuse with intoxication, unspecified; F31.30 Bipolar disorder, current episode depressed, mild or moderate severity, unspecified; E11.9 Type 2 diabetes mellitus without complications; F41.9 Anxiety disorder, unspecified; E87.20 Acidosis, unspecified; I10 Essential (primary) hypertension; E78.5 Hyperlipidemia, unspecified; F12.10 Cannabis abuse, uncomplicated; E66.9 Obesity, unspecified; G25.81 Restless legs syndrome; G24.01 Drug induced subacute dyskinesia; Z79.899 Other long term (current) drug therapy; Z79.84 Long term (current) use of oral hypoglycemic drugs; Z68.34 Body mass index [BMI] 34.0-34.9, adult; E87.6 Hypokalemia; F17.210 Nicotine dependence, cigarettes, uncomplicated
CPT/HCPCS: 36415; 70450; 70553; 80048; 80053; 80307; 82077; 82550; 82962; 83605; 83615; 83735; 84146; 84439; 84443; 84484; 84703; 85025; 93005; 95819; 96360; 96361; 99221; 99285; 99406; A9575; J7030; J7040; A4216; G0378